=== PATIENT | female | born 1970 | race Two or more races ===

== ENCOUNTER 2020-09-25 11:24 | Outpatient (CLI) | payer OTHER | END 2020-09-25 11:44 | disposition home or self-care (01) | LOC: SONOGRAMA 11:24 | PROVIDERS: ATTEND Surgery | DX: D24.1 Benign neoplasm of right breast (principal); N60.11 Diffuse cystic mastopathy of right breast; N60.12 Diffuse cystic mastopathy of left breast ==

== ENCOUNTER 2020-10-01 10:43 | Outpatient (CLI) | payer OTHER | END 2020-10-01 10:53 | disposition home or self-care (01) | LOC: NUCLEAR 10:43 | PROVIDERS: ATTEND Family Medicine | DX: R00.2 Palpitations (principal) ==